=== PATIENT | male | born 1980 | race Caucasian/White ===

== ENCOUNTER 2018-09-26 09:58 | Emergency (ER) | payer SELFPAY ==
[~2018-09-26] VITALS: Ht 167.6 cm; Wt 80.7 kg
[2018-09-26 10:18] VITALS: BP 138/92; Ht 167.6 cm; Wt 80.7 kg
== END 2018-09-26 12:10 | disposition home or self-care (01) ==
LOC: ED 09:58
DX: S29.012A Strain of muscle and tendon of back wall of thorax, initial encounter (principal); S16.1XXA Strain of muscle, fascia and tendon at neck level, initial encounter; S09.8XXA Other specified injuries of head, initial encounter; Z88.0 Allergy status to penicillin; V89.2XXA Person injured in unspecified motor-vehicle accident, traffic, initial encounter; Y93.89 Activity, other specified; Y92.488 Other paved roadways as the place of occurrence of the external cause; Y99.8 Other external cause status
CPT/HCPCS: 72072